=== PATIENT | male | born 1970 | race Caucasian/White ===

== ENCOUNTER 2019-11-22 00:30 | Emergency (ER) | payer SELFPAY ==
[~2019-11-22] VITALS: Ht 188 cm; Wt 83.9 kg
[2019-11-22 00:36] VITALS: BP 136/88
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
--- NOTE | 2019-11-22 00:42 | NUR ---
Dr. Petersen examining patient.
[2019-11-22 00:51] VITALS: BP 136/88
--- NOTE | 2019-11-22 00:52 | NUR ---
PATIENT BIB [facility]. PATIENT EXAMINED BY DR. SNYDER. PATIENT MEDICALLY CLEARED AND RELEASED IN CUSTODY IN STABLE CONDITION. ORIGINAL PRE-BOOK FORM GIVEN TO OFFICER BONNIE.
== END 2019-11-22 00:52 ==
LOC: MED 00:30
DX: Z04.1 Encounter for examination and observation following transport accident (principal); Z02.89 Encounter for other administrative examinations; V89.2XXA Person injured in unspecified motor-vehicle accident, traffic, initial encounter; Y93.89 Activity, other specified; Y92.89 Other specified places as the place of occurrence of the external cause; Y99.8 Other external cause status
CPT/HCPCS: 99283